=== PATIENT | male | born 1945 | race Caucasian/White ===

== ENCOUNTER 2017-12-10 11:03 | Emergency (ER) | payer MEDICARE ==
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
--- NOTE | 2017-12-10 12:35 | RAD ---
INDICATION: 2 weeks of left foot swelling COMPARISON: None. TECHNIQUE: 3 views of the left foot were obtained. FINDINGS: At the proximal metaphysis of the left fifth metatarsal there is a well-circumscribed 5 mm lucency in the bone. Immediately proximal lateral to the proximal pole of the right fifth metatarsal there is a 3 mm bony focus seen on the AP and oblique views that may represent an avulsion in the correct clinical presentation though there is no definite donor site identified. The bones are otherwise adequately corticated and aligned. There is coarse atherosclerotic calcification overlying the distal TYRELL and DYE RANGE FEEDER. IMPRESSION: 1. 5 MM WELL-CIRCUMSCRIBED HYPODENSE LESION IN THE PROXIMAL POLE OF THE LEFT FIFTH METATARSAL WITH BENIGN RADIOGRAPHIC CHARACTERISTICS. 2. SMALL BONY FRAGMENT PROXIMAL AND LATERAL TO THE PROXIMAL HEAD OF THE RIGHT FIFTH METATARSAL WHICH MIGHT REPRESENT AN AVULSION FRACTURE OF THE CORRECT CLINICAL SETTING OF THERE IS NO DEFINITE DONOR SITE OR SIGNS OF SOFT TISSUE INFLAMMATION AT THIS PART OF THE FOOT. 3. INCIDENTALLY NOTED IS CALCIFIED ATHEROSCLEROSIS OF THE VISUALIZED INFRAPOPLITEAL ARTERIES. PLEASE CORRELATE TO SIGNS AND SYMPTOMS OF ARTERIAL INSUFFICIENCY. If the patient's symptoms persist, follow-up imaging is recommended.
--- NOTE | 2017-12-10 13:25 | RAD ---
INDICATION: LEFT calf pain. Assess for DVT. COMPARISON: No relevant prior exams available on the [facility] P[facility] for comparison. TECHNIQUE: Vilchis scale, color Doppler, and spectral analysis of the deep veins of the LEFT lower extremity. Vessel compression, phasicity, and augmentation assessed. REPORT: The LEFT common femoral, great saphenous, profunda femoral, femoral, popliteal, peroneal, and posterior tibial veins are patent. Patency of the RIGHT common femoral vein documented. IMPRESSION: No evidence for LEFT lower extremity deep venous thrombosis.
[2017-12-10 14:09] VITALS: BP 169/84
== END 2017-12-10 14:53 | disposition home or self-care (01) ==
LOC: UCCORT 11:03
DX: I87.2 Venous insufficiency (chronic) (peripheral) (principal); I10 Essential (primary) hypertension
CPT/HCPCS: 99202; G0463